=== PATIENT | female | born 1960 | race African-American/Black ===

== ENCOUNTER 2016-08-18 22:52 | Emergency (ER) | payer MEDICARE, OTHER ==
[2016-08-20] MEDS ORDERED: PRILOSEC40 MG PO (00:24)
[2016-08-20] MEDS ORDERED: ZESTORETIC1 TA1 PO (00:24)
[2016-08-20] MEDS ORDERED: B121000P IM/SC (00:24)
[2016-08-20] MEDS ORDERED: LIPITOR40 PO (00:24)
[2016-08-20] MEDS ORDERED: [UNRECOGNIZED DRUG - REMARK] (00:26)
[2016-08-21] MEDS ORDERED: AUG875 PO (12:55)
[2016-08-21] MEDS ORDERED: JANUMET XR 50-1 EACH PO (12:55)
[2016-08-21] MEDS ORDERED: NORCO1 TA1 PO (12:57)
== END 2016-08-18 23:09 | disposition home or self-care (01) ==
LOC: ER 22:52
DX: K08.89 Other specified disorders of teeth and supporting structures (principal); I10 Essential (primary) hypertension; K21.9 Gastro-esophageal reflux disease without esophagitis; F17.200 Nicotine dependence, unspecified, uncomplicated
CPT/HCPCS: 99282